=== PATIENT | female | born 1965 ===

== ENCOUNTER 2019-01-05 09:45 | Emergency (ER) | payer SELFPAY ==
[2019-01-05 10:04] VITALS: BP 129/83
--- NOTE | 2019-01-05 11:01 | UC ---
Bite Injury/Animal HPI - HPI Summary HPI Summary: Patient presents to urgent care for evaluation of a cat bite that she sustained to her right thumb last evening. Patient states yesterday adopted a cat from the [facility]. Patient states is up-to-date on all vaccinations. Patient states last night she started of the cat when she went to pet it and it bit her right thumb. Patient does not know when her last tetanus was. Patient is not immunocompromised. Patient states she cleaned the wound. Patient denies any pain. No paresthesias. Patient states went on the Internet and is concerned as a states many of these get infected. Patient is on no medications doesn't have a doctor. RHD - History of Current Complaint Chief Complaint: UCBiteInjury Stated Complaint: ANIMAL BITE Time Seen by Provider: 01/05/19 10:14 Hx Obtained From: Patient ?: No Severity Currently: None Pain Intensity: 0 Pain Scale Used: 0-10 Numeric - Allergies/Home Medications Allergies/Adverse Reactions: Allergies Allergy/AdvReac Type Severity Reaction Status Date / Time No Known Allergies Allergy Verified 01/05/19 09:56 PMH/Surg Hx/FS Hx/Imm Hx Previously Healthy: Yes - no PCP - Surgical History Surgical History: Yes Surgery Procedure, Year, and Place: DENTAL. - Family History Known Family History: Positive: Non-Contributory - Social History Occupation: Employed Full-time - works on farm Lives: With Family Alcohol Use: None Substance Use Type: None Smoking Status (MU): Never Smoked Tobacco - Immunization History Most Recent Tetanus Shot: UNSURE Review of Systems All Other Systems Reviewed And Are Negative: Yes Constitutional: Positive: Negative Skin: Positive: Other - right hand puncture wound Motor: Positive: Other - right hand Is Patient Immunocompromised?: No Physical Exam - Summary Physical Exam Summary: Vital Signs Reviewed: Yes A+Ox3, no distress Eyes: Conjunctiva Clear ENT: Hearing grossly normal neck: supple Respiratory: Positive: No respiratory distress, No accessory muscle use Cardiovascular: skin color reflect adequate perfusion 2+ radial, 2+ ulnar CBT < 2 sec all digits Musculoskeletal Exam: + abduct shoulder + flex/ext elbow + pronate/supinate + flex/ext wrist + full abduct, adduct, flex/ext MCP, PIP thumb Neurological: Positive: Alert, ambulatory without difficulty + gross sensation throughout hand Psychological: Positive: Normal Response To Family Skin: Positive: no rash, no ecchymosis, pt with 2 puncture wounds base left thumb, dorsum with mild erythema and local edema. No drainage. no red streaking , minimally tender with direct palpation Triage Information Reviewed: Yes Vital Signs: Initial Vital Signs Temp 98 F 01/05/19 09:57 Pulse 83 01/05/19 09:57 Resp 16 01/05/19 09:57 BP 129/83 01/05/19 09:57 Pulse Ox 100 01/05/19 09:57 Bite Injury Course/Dx - Course Course Of Treatment: Patient presents to urgent care for evaluation of a cat bite puncture wound that occurred last evening to her right, dominant hand. Patient states she got a new From yesterday. Patient's immunizations are up-to- date. Patient washed the wound. Patient states she's got no pain no fevers no increased swelling. No analgesia taken. Patient states she read in the internet and in concened about infection. VSS. Pt with puncture wound to base left thumb. no current concern for infection. Will start Augmentin - urgent Rx to [facility]. wound care. s/s infection. thumb spica. Pt refusing Tdap today - d/w pt risks/benefits. Pt will consider and return if changes mind. strict return precautions. bite form complete - pt states cat adopted yesterday from [facility]. [facility]. Physician referral center #. Pt aware may receive call from [facility] - Differential Dx/Diagnosis Provider Diagnosis: Cat bite Discharge - Sign-Out/Discharge Documenting (check all that apply): Patient Departure All imaging exams completed and their final reports reviewed: No Studies - Discharge Plan Condition: Stable Disposition: HOME Prescriptions: Amoxicillin/Clavulanate TAB* [Augmentin TAB 875*] 875 mg PO BID #20 tab Patient Education Materials: Animal Bite (ED) Referrals: No Primary Care Phys,NOPCP [Primary Care Provider] - [facility] [Outside] Additional Instructions: - wear splint as much as possible for the next 4-5 days - take antibiotics 2 times a day for 10 days - wash wound with warm, soap water 2-3 times a day. Pat dry, cover with antibiotic ointment (polysporin, neosporin) and bandage. Re-apply splint - monitor your wound for increased reddness, red streaking, swelling, pain - if you have ANY Concerns , you should go directly to the emergency department for further evaluation - You declined the tetanus vaccination today - you should follow-up with a primary care provider or return here if you elect to have this vaccination You have been given referral information for the physician referral center - call this office on Monday for assistance establishing with a primary care provider - Billing Disposition and Condition Condition: STABLE Disposition: Home
== END 2019-01-05 11:15 | disposition home or self-care (01) ==
LOC: UCEAST 09:45
DX: S61.032A Puncture wound without foreign body of left thumb without damage to nail, initial encounter (principal); W55.01XA Bitten by cat, initial encounter; Y92.9 Unspecified place or not applicable
CPT/HCPCS: 99203; G0463